=== PATIENT | female | born 1985 ===

== ENCOUNTER 2021-12-26 09:56 | Outpatient (CLI) | payer OTHER | END 2021-12-26 11:15 | disposition home or self-care (01) | LOC: PRENATAL 09:56 | PROVIDERS: ATTEND Obstetrics & Gynecology Maternal & Fetal Medicine | DX: O35.0XX0 Maternal care for (suspected) central nervous system malformation in fetus, not applicable or unspecified (principal); O35.3XX0 Maternal care for (suspected) damage to fetus from viral disease in mother, not applicable or unspecified; O09.519 Supervision of elderly primigravida, unspecified trimester; Z3A.25 25 weeks gestation of pregnancy ==

== ENCOUNTER 2022-02-14 09:29 | Outpatient (CLI) | payer OTHER | END 2022-02-14 11:13 | disposition home or self-care (01) | LOC: PRENATAL 09:29 | PROVIDERS: ATTEND Obstetrics & Gynecology Maternal & Fetal Medicine | DX: O26.849 Uterine size-date discrepancy, unspecified trimester (principal) ==